=== PATIENT | female | born 1990 | race Two or more races ===

== ENCOUNTER 2022-10-28 08:46 | Emergency (ER) | payer MEDICAID ==
[~2022-10-28] VITALS: Ht 162.6 cm; Wt 89.0 kg
[2022-10-28 09:53] VITALS: BP 113/72
[2022-10-28 10:02] LABS: Urine Bacteria FEW /hpf (None Seen); Urine Blood Negative /uL (Negative); Urine Mucus FEW (None Seen); Urine Specific Gravity 1.024 (1.001-1.035); Urine WBC 12 /hpf (0 - 5)
[2022-10-28] MEDS ORDERED: CEPH-510 PO (10:12)
[2022-10-28] MEDS ORDERED: IBUP800T27 PO (10:12)
== END 2022-10-28 10:18 | disposition home or self-care (01) ==
LOC: ER 08:46
DX: N39.0 Urinary tract infection, site not specified (principal); L73.9 Follicular disorder, unspecified; Z32.02 Encounter for pregnancy test, result negative
CPT/HCPCS: 81001; 81025